=== PATIENT | female | born 1965 | race Caucasian/White ===

== ENCOUNTER 2020-06-04 14:15 | Inpatient (IN) ==
--- NOTE | 2020-06-04 15:16 | Emergency Department Note ---
History of Present Illness General Chief complaint: Illness Stated complaint: COVID +,FEELING NUMB,WEAK,DIARRHEA Time Seen by Provider: 06/04/20 15:00 History of Present Illness This is a 54-year-old female that presents to the emergency department via private vehicle with complaints "Covid positive, feeling numb, weak, diarrhea". The patient notes that last weekend she developed bilateral eye pain and feeling tired. She notes that her coworkers tested positive for COVID-19 therefore she was tested this past Monday and was called with results that were positive on Monday. She was tested at [facility]. She notes since that time starting today she began with numbness in the fingers and nose/lips. This is new for her and notes that she was not able to move earlier today secondary to this while at home. This prompted arrival here today. She notes associated fever, chills and diarrhea. She denies any chest pain, shortness of breath, nausea or vomiting. She notes a history of hypertension, partial hysterectomy and is currently on Paxil. She is also on atenolol for heart palpitations. She denies any vision change or weakness at this current time. Home Medications Medication Instructions Recorded Confirmed Type atenolol 100 mg PO DAILY 05/20/18 06/04/20 History paroxetine HCl 10 mg PO DAILY 05/20/18 06/04/20 History hydrochlorothiazide 25 mg PO DAILY 06/04/20 06/04/20 History sumatriptan succinate 100 mg PO UD PRN 06/04/20 06/04/20 History Allergies Allergy/AdvReac Type Severity Reaction Status Date / Time erythromycin base Allergy Mild Rash Verified 06/04/20 17:06 Past Med/Surg History Medical History Acid reflux disease Anxiety Palpitations Surgical History (Updated 06/04/20 @ 15:21 by Carmine Alas PA-C) History of partial hysterectomy Family History Other No pertinent family history in first degree relatives Social History Smoking Status: Former smoker Preferred Language: Algerian Feels Safe at Home: Yes Review of Systems A total of 10 systems reviewed and were otherwise negative Physical Exam Vital Signs Vital Signs - 24 hr 06/04/20 14:22 06/04/20 15:03 06/04/20 15:14 Temperature 37.3 C Temperature Source Temporal Artery Scan Pulse Rate 87 72 84 Pulse Rate from SpO2 Sensor 71 Pulse Rhythm Regular Respiratory Rate 16 27 H 18 Respiratory Effort / Characteristics Short of Breath Blood Pressure 117/77 123/78 Blood Pressure Mean 90 93 Blood Pressure Position Sitting Pulse Oximetry 99 99 96 Oxygen Delivery Method Room Air Room Air Sepsis Recent Fever Within 48 Hours No Sepsis New/Unexplained Change in Mental Status N/A Sepsis Action Taken by Nursing No Action Required 06/04/20 16:00 06/04/20 16:30 06/04/20 17:00 Temperature Temperature Source Pulse Rate 68 68 69 Pulse Rate from SpO2 Sensor 69 69 69 Pulse Rhythm Respiratory Rate 27 H 25 H 24 Respiratory Effort / Characteristics Blood Pressure 103/53 L 117/70 121/73 Blood Pressure Mean 69 85 89 Blood Pressure Position Pulse Oximetry 96 97 99 Oxygen Delivery Method Sepsis Recent Fever Within 48 Hours Sepsis New/Unexplained Change in Mental Status Sepsis Action Taken by Nursing 06/04/20 17:30 06/04/20 18:30 06/04/20 19:00 Temperature Temperature Source Pulse Rate 72 68 67 Pulse Rate from SpO2 Sensor 71 68 67 Pulse Rhythm Respiratory Rate 24 22 24 Respiratory Effort / Characteristics Blood Pressure 117/71 132/76 126/75 Blood Pressure Mean 86 94 92 Blood Pressure Position Pulse Oximetry 99 99 97 Oxygen Delivery Method Sepsis Recent Fever Within 48 Hours Sepsis New/Unexplained Change in Mental Status Sepsis Action Taken by Nursing 06/04/20 19:30 06/04/20 20:00 06/04/20 20:30 Temperature Temperature Source Pulse Rate 72 65 68 Pulse Rate from SpO2 Sensor 72 65 68 Pulse Rhythm Respiratory Rate 25 H 26 H 22 Respiratory Effort / Characteristics Blood Pressure 130/79 131/76 110/55 L Blood Pressure Mean 96 94 73 Blood Pressure Position Pulse Oximetry 98 97 97 Oxygen Delivery Method Sepsis Recent Fever Within 48 Hours Sepsis New/Unexplained Change in Mental Status Sepsis Action Taken by Nursing 06/04/20 21:00 Temperature Temperature Source Pulse Rate Pulse Rate from SpO2 Sensor 71 Pulse Rhythm Respiratory Rate Respiratory Effort / Characteristics Blood Pressure 128/81 Blood Pressure Mean 96 Blood Pressure Position Pulse Oximetry 97 Oxygen Delivery Method Sepsis Recent Fever Within 48 Hours Sepsis New/Unexplained Change in Mental Status Sepsis Action Taken by Nursing VITAL SIGNS - Vital signs and nursing notes were reviewed. Stable and afebrile. GENERAL -54-year-old female appearing her stated age who is in no acute distre ss. Communicates well with provider and answers questions appropriately. SKIN - Without rashes. No meningeal or petechial rash. HEAD - NC/AT. EYES - PERRL with EOMI bilaterally. Sclera anicteric. Palpebral conjunctiva pink and moist with no injection noted. EARS - No deformities of external structures noted on gross examination bilaterally. No pain elicited with palpation of the tragus bilaterally. External auditory canals without discharge or otorrhea. Tympanic membranes pearly luo without retraction or bulging. No fluid or purulent material visualized behind the TM. Handle of malleus, umbo, cone of light, pars tensa/flaccid all easily visualized. NOSE - Midline and without cyanosis. No epistaxis or purulent drainage noted. Septum midline without deviation or septal hematoma noted. MOUTH/OROPHARYNX - Without perioral cyanosis. Buccal mucosa pink and moist and without leukoplakia. Tongue midline with equal elevation of palate bilaterally. No tonsillar hypertrophy, erythema, or exudates noted. Good dentition noted. NECK - Neck with FROM. Supple to palpation. No lymphadenopathy noted. No nuchal rigidity. LUNGS - Chest wall symmetric without accessory muscle use, intercostals retr actions, or central cyanosis. Normal vesicular breath sounds CTA B/L. No wheezes, rales, or rhonchi appreciated. CARDIAC - RRR with S1/S2. No murmur, rubs, or gallops appreciated. ABDOMEN - Abdominal contour normal without pulsations or visible masses. BS normoactive all four quadrants. No tenderness, palpable masses, hepatosplenomegaly, or ascites noted. EXTREMITIES - No clubbing or peripheral cyanosis. No pretibial edema present. +5/5 strength noted in UE/LE bilaterally. NEUROLOGIC - Cranial nerves II through XII grossly intact. Sensory intact to light touch throughout. PSYCH - A&Ox3 and cooperates fully with examiner. Pt is very pleasant and interacts well with examiner. Course Administered Medications Discontinued Medications Sodium Chloride (Nss 1000ml) 1,000 mls @ 999 mls/hr IV .Q1H1M VEE Stop: 06/04/20 16:45 Last Infusion: 06/04/20 20:00 Dose: 0 mls/hr Documented by: [id number] Admin: 06/04/20 16:38 Dose: 999 mls/hr Documented by: [id number] Potassium Phosphate 21 mmol/ (Sodium Chloride) 507 mls @ 126.75 mls/hr IV NOW ONE Stop: 06/04/20 21:14 Last Infusion: 06/04/20 18:01 Dose: 0 mls/hr Documented by: [id number] Admin: 06/04/20 17:35 Dose: 126.8 mls/hr Documented by: [id number] Ioversol (Optiray 350 500ml) 117 ml IV ONCE ONE Stop: 06/04/20 18:07 Last Admin: 06/04/20 18:06 Dose: 117 ml Documented by: [id number] Potassium Chloride (Potassium Chloride Crtab 20 Meq Tabcr) 20 meq PO NOW STA Stop: 06/04/20 18:54 Last Admin: 06/04/20 21:23 Dose: 20 meq Documented by: [id number] Potassium Chloride (Potassium Chloride 20 Meq/15 Ml Udc) Confirm Administered Dose 20 meq .ROUTE .STK-MED ONE Stop: 06/04/20 21:04 Last Admin: 06/04/20 21:56 Dose: Not Given Documented by: [id number] Medical Decision Making Laboratory Data Result diagrams: 06/04/20 15:30 06/04/20 15:22 Lab Results 06/04/20 06/04/20 06/04/20 Range/Units 15:22 15:30 15:30 WBC 4.24 L (4.8-10.8) K/uL RBC 5.58 H (4.2-5.4) M/uL Hgb 17.5 H (12.0-16.0) g/dL Hct 50.1 H (37-47) % MCV 89.8 (80-100) fL MCH 31.4 (25-34) pg MCHC 34.9 (32-36) g/dL RDW Std Deviation 42.4 (36.4-46.3) fL RDW Coeff of Carlos 12.8 (11.5-14.5) % Plt Count 121 L (130-400) K/uL MPV 10.3 (7.4-10.4) fL Immature Gran % (Auto) 0.5 % Neut % (Auto) 74.5 % Lymph % (Auto) 17.0 % Mason % (Auto) 7.8 % Eos % (Auto) 0.0 % Baso % (Auto) 0.2 % Neut # (Auto) 3.16 (1.4-6.5) K/uL Lymph # (Auto) 0.72 L (1.2-3.4) K/uL Mason # (Auto) 0.33 (0.11-0.59) K/uL Eos # (Auto) 0.00 (0-0.5) K/uL Baso # (Auto) 0.01 (0-0.2) K/uL Immature Gran # (Auto) 0.02 (0.00-0.02) K/uL Microcytosis [employer] PT 10.0 (9.0-12.0) Seconds INR 1.0 (0.9-1.1) APTT 25.1 (21.0-31.0) Seconds PTT Ratio 1.0 Sodium 138 (136-145) mmol/L Potassium 3.0 L (3.5-5.1) mmol/L Chloride 100 (98-107) mmol/L Carbon Dioxide 31 (21-32) mmol/L Anion Gap 7.0 (3-11) BUN 14 (7-18) mg/dl Creatinine 0.86 (0.6-1.2) mg/dl Est Cr Clr Drug Dosing 70.0 ml/min Est GFR ( Amer) 88.8 Est GFR (Non-Af Amer) 76.6 BUN/Creatinine Ratio 16.4 (10-20) Glucose 119 H (70-99) mg/dl Calcium 9.0 (8.5-10.1) mg/dl Phosphorus 1.4 L* (2.5-4.9) mg/dl Magnesium 2.4 (1.8-2.4) mg/dl Total Bilirubin 0.6 (0.2-1) mg/dl AST 33 (15-37) U/L ALT 32 (12-78) U/L Alkaline Phosphatase 91 (45-117) U/L Troponin I < 0.015 (0-0.045) ng/ml Total Protein 8.8 H (6.4-8.2) gm/dl Albumin 4.2 (3.4-5.0) gm/dl Globulin 4.6 H (2.5-4.0) gm/dl Albumin/Globulin Ratio 0.9 (0.9-2) TSH 4.930 H (0.300-4.500) uIu/ml Free T4 1.17 (0.8-1.6) ng/dl Urine Color Urine Appearance (Clear) Urine pH (4.5-7.5) Ur Specific [place] (1.000-1.030) Urine Protein (Negative) Urine Glucose (UA) (Negative) Urine Ketones (Negative) Urine Blood (Negative) Urine Nitrite (Negative) Urine Bilirubin (Negative) Urine Urobilinogen (Negative) Ur Leukocyte Esterase (Negative) Urine WBC (Auto) (0-5) /hpf Urine RBC (Auto) (0-4) /hpf U Hyaline Cast (Auto) (0-5) /lpf U Epithel Cells (Auto) (0-5) /lpf Urine Bacteria (Auto) (Negative) Ur Renal Epithelial Cell (0-5) /lpf COVID-19 Eval Order SARS-CoV-2 (PCR) (Negative) Influenza Type A (PCR) (Neg) Influenza Type B (PCR) (Neg) RSV (RT-PCR) (Neg) 06/04/20 06/04/20 06/04/20 Range/Units 15:30 19:55 19:55 WBC (4.8-10.8) K/uL RBC (4.2-5.4) M/uL Hgb (12.0-16.0) g/dL Hct (37-47) % MCV (80-100) fL MCH (25-34) pg MCHC (32-36) g/dL RDW Std Deviation (36.4-46.3) fL RDW Coeff of Carlos (11.5-14.5) % Plt Count (130-400) K/uL MPV (7.4-10.4) fL Immature Gran % (Auto) % Neut % (Auto) % Lymph % (Auto) % Mason % (Auto) % Eos % (Auto) % Baso % (Auto) % Neut # (Auto) (1.4-6.5) K/uL Lymph # (Auto) (1.2-3.4) K/uL Mason # (Auto) (0.11-0.59) K/uL Eos # (Auto) (0-0.5) K/uL Baso # (Auto) (0-0.2) K/uL Immature Gran # (Auto) (0.00-0.02) K/uL Microcytosis PT (9.0-12.0) Seconds INR (0.9-1.1) APTT (21.0-31.0) Seconds PTT Ratio Sodium (136-145) mmol/L Potassium (3.5-5.1) mmol/L Chloride (98-107) mmol/L Carbon Dioxide (21-32) mmol/L Anion Gap (3-11) BUN (7-18) mg/dl Creatinine (0.6-1.2) mg/dl Est Cr Clr Drug Dosing ml/min Est GFR ( Amer) Est GFR (Non-Af Amer) BUN/Creatinine Ratio (10-20) Glucose (70-99) mg/dl Calcium (8.5-10.1) mg/dl Phosphorus (2.5-4.9) mg/dl Magnesium (1.8-2.4) mg/dl Total Bilirubin (0.2-1) mg/dl AST (15-37) U/L ALT (12-78) U/L Alkaline Phosphatase (45-117) U/L Troponin I (0-0.045) ng/ml Total Protein (6.4-8.2) gm/dl Albumin (3.4-5.0) gm/dl Globulin (2.5-4.0) gm/dl Albumin/Globulin Ratio (0.9-2) TSH (0.300-4.500) uIu/ml Free T4 (0.8-1.6) ng/dl Urine Color Dark Yellow Urine Appearance Cloudy A (Clear) Urine pH 7.5 (4.5-7.5) Ur Specific [place] 1.028 (1.000-1.030) Urine Protein 3+ H (Negative) Urine Glucose (UA) Negative (Negative) Urine Ketones 1+ H (Negative) Urine Blood Trace H (Negative) Urine Nitrite Negative (Negative) Urine Bilirubin Negative (Negative) Urine Urobilinogen Negative (Negative) Ur Leukocyte Esterase Trace H (Negative) Urine WBC (Auto) 5-10 H (0-5) /hpf Urine RBC (Auto) 5-10 H (0-4) /hpf U Hyaline Cast (Auto) >30 H (0-5) /lpf U Epithel Cells (Auto) >30 H (0-5) /lpf Urine Bacteria (Auto) Negative (Negative) Ur Renal Epithelial Cell 0-5 (0-5) /lpf COVID-19 Eval Order CovFluRsv at [facility] SARS-CoV-2 (PCR) POSITIVE A* (Negative) Influenza Type A (PCR) Negative (Neg) Influenza Type B (PCR) Negative (Neg) RSV (RT-PCR) Negative (Neg) Imaging Data Radiologist's Impression: Chest X-Ray 06/04/20 15:14 XR chest 1V portable CLINICAL HISTORY: numbness in extremities COMPARISON STUDY: 09/04/2013 FINDINGS: The cardiac and mediastinal contours are normal. There is no evidence of focal pulmonary consolidation. There is no evidence of failure. No pleural effusions are visualized.[An azygos fissure is again visualized. IMPRESSION: No active disease in the chest. ACT 112: Negative or not required by law. Electronically signed by: Marlo Lara M.D. 06/04/2020 4:14 PM Head CTA 06/04/20 15:14 CT ANGIOGRAM OF THE BRAIN COMBO; CT ANGIOGRAM OF THE NECK CLINICAL HISTORY: Extremity numbness. Covid. COMPARISON STUDY: No priors. TECHNIQUE: Unenhanced axial CT scan of the brain is performed. Subsequently, following the IV administration of 117 of Optiray 350, CT angiogram of the head and neck was performed from the aortic arch to the vertex. Images are reviewed in the axial, sagittal, and coronal planes. 3-D MIPS images are created and assessed. IV contrast was administered without complication. All measurements were calculated based on NASCET criteria. A dose lowering technique was utilized adhering to the principles of ALARA. CT DOSE: 1050.00 mGy.cm FINDINGS: Brain parenchyma: The brain parenchyma is normal in appearance. There is no hemorrhage, mass effect, or evidence of acute territorial ischemia by CT cr iteria. There is no evidence of enhancing mass lesion on the angiogram phase images. The ventricles, sulci, and cisterns are normal in configuration. Luo- white matter differentiation is preserved. No extra-axial fluid collection is seen. Thoracic aorta: Visualized portions of the thoracic aorta are normal in caliber. The aortic arch demonstrates standard 3-vessel anatomy. Right carotid arterial system: The right common carotid artery is widely patent, as are the right internal and external carotid arteries. The right internal carotid artery demonstrates a beaded appearance. Left carotid arterial system: The left common carotid artery is widely patent, as are the left internal and external carotid arteries. The left internal carotid artery demonstrates a beaded appearance. Vertebral arteries: The vertebral arteries are widely patent and codominant. Subclavian arteries: Widely patent bilaterally. Intracranial vasculature: The internal carotid arteries are patent at the skull base, as are the anterior and middle cerebral arteries bilaterally. The vertebrobasilar system and posterior cerebral arteries are widely patent. The vertebral arteries are codominant. There is no aneurysm, high-grade stenosis, or focal vessel cut off seen throughout the intracranial circulation. Jugular veins: Patent bilaterally. Dural sinuses: Patent. Lung apices: Partially visualized upper lobe lung parenchyma appears clear. An accessory azygous fissure is incidentally noted. Soft tissues: The visualized pharyngeal soft tissues are normal in appearance noting angiographic phase technique. The oropharyngeal airway appears widely patent. A large calcification is noted in the left lobe of the thyroid gland. Scattered subcentimeter low-attenuation nodules are seen bilaterally. The salivary glands are normal in appearance. No cervical lymphadenopathy is seen. Skeletal structures: The calvarium appears intact. The cervical spine is within normal limits. No lytic or blastic lesion is seen. Orbits: The bony orbits are intact. Orbital contents are normal as visualized. Sinuses and mastoids: There is mild mucosal thickening within the maxillary antra. The remaining paranasal sinuses are clear. The mastoid air cells are well pneumatized. IMPRESSION: 1. There is no hemorrhage, mass effect, or evidence of acute territorial ischemia by CT criteria. 2. Unremarkable CT angiogram of the brain. 3. The carotid arteries and vertebral arteries are patent in the neck. 4. The internal carotid arteries demonstrate a beaded appearance bilaterally. This is typical in appearance for fibromuscular dysplasia. ACT 112: Negative or not required by law. Electronically signed by: Lew Whitley M.D. 06/04/2020 6:30 PM Neck CTA 06/04/20 15:14 CT ANGIOGRAM OF THE BRAIN COMBO; CT ANGIOGRAM OF THE NECK CLINICAL HISTORY: Extremity numbness. Covid. COMPARISON STUDY: No priors. TECHNIQUE: Unenhanced axial CT scan of the brain is performed. Subsequently, following the IV administration of 117 of Optiray 350, CT angiogram of the head and neck was performed from the aortic arch to the vertex. Images are reviewed in the axial, sagittal, and coronal planes. 3-D MIPS images are created and assessed. IV contrast was administered without complication. All measurements were calculated based on NASCET criteria. A dose lowering technique was utilized adhering to the principles of ALARA. CT DOSE: 1050.00 mGy.cm FINDINGS: Brain parenchyma: The brain parenchyma is normal in appearance. There is no hemorrhage, mass effect, or evidence of acute territorial ischemia by CT criteria. There is no evidence of enhancing mass lesion on the angiogram phase images. The ventricles, sulci, and cisterns are normal in configuration. Luo- white matter differentiation is preserved. No extra-axial fluid collection is seen. Thoracic aorta: Visualized portions of the thoracic aorta are normal in caliber. The aortic arch demonstrates standard 3-vessel anatomy. Right carotid arterial system: The right common carotid artery is widely patent, as are the right internal and external carotid arteries. The right internal carotid artery demonstrates a beaded appearance. Left carotid arterial system: The left common carotid artery is widely patent, as are the left internal and external carotid arteries. The left internal carotid artery demonstrates a beaded appearance. Vertebral arteries: The vertebral arteries are widely patent and codominant. Subclavian arteries: Widely patent bilaterally. Intracranial vasculature: The internal carotid arteries are patent at the skull base, as are the anterior and middle cerebral arteries bilaterally. The vertebrobasilar system and posterior cerebral arteries are widely patent. The vertebral arteries are codominant. There is no aneurysm, high-grade stenosis, or focal vessel cut off seen throughout the intracranial circulation. Jugular veins: Patent bilaterally. Dural sinuses: Patent. Lung apices: Partially visualized upper lobe lung parenchyma appears clear. An accessory azygous fissure is incidentally noted. Soft tissues: The visualized pharyngeal soft tissues are normal in appearance noting angiographic phase technique. The oropharyngeal airway appears widely patent. A large calcification is noted in the left lobe of the thyroid gland. Scattered subcentimeter low-attenuation nodules are seen bilaterally. The salivary glands are normal in appearance. No cervical lymphadenopathy is seen. Skeletal structures: The calvarium appears intact. The cervical spine is within normal limits. No lytic or blastic lesion is seen. Orbits: The bony orbits are intact. Orbital contents are normal as visualized. Sinuses and mastoids: There is mild mucosal thickening within the maxillary antra. The remaining paranasal sinuses are clear. The mastoid air cells are well pneumatized. IMPRESSION: 1. There is no hemorrhage, mass effect, or evidence of acute territorial isch emia by CT criteria. 2. Unremarkable CT angiogram of the brain. 3. The carotid arteries and vertebral arteries are patent in the neck. 4. The internal carotid arteries demonstrate a beaded appearance bilaterally. This is typical in appearance for fibromuscular dysplasia. ACT 112: Negative or not required by law. Electronically signed by: Lew Whitley M.D. 06/04/2020 6:30 PM MDM Narrative Patient was seen and evaluated as above in room B08. Review was performed of nursing notes and vital signs. After obtaining a thorough history and physical examination the above work up was performed. Patient presents to us today in the setting of recent positive COVID-19 test now with what she describes as numbness in the hands, feet as well as face. She notes that earlier today she was unable to move the feet and hands. On arrival there is no neurovascular deficit. Vital signs are stable. Patient appears nontoxic. Options of care were discussed with the patient. IV access was established. Labs were drawn. There is mild leukopenia at 4.24 with mild elevation of the patient's hemoglobin at 17.5. Hypokalemia noted at 3.0. Hypophosphatemia at 1.4. Troponin within normal limits. TSH reveals slight elevation of 4.9. Urinalysis reveals what is likely a contaminated sample. Covid testing was repeated here as the patient will likely require admission to the hospital as was informed by staff here that obtaining results from right aid is not possible at this time. This was performed and was positive for COVID-19. In addition, patient was repleted with IV potassium phosphate as well as p.o. potassium. She was also hydrated with a liter of normal saline. EKG was performed and does reveal changes compared to previous but she denies any chest pain or shortness of breath and also has a negative troponin. I discussed options of care with the patient. The potassium phosphate does have to run at a quite slow rate. Patient is experiencing intermittent numbness still in the hands. CTA was obtained of the head and neck. This was essentially negative for any emergent process however I will note that the internal carotid arteries demonstrated beaded appearance bilaterally per radiology noted be typical in appearance for fibromuscular dysplasia. I did discuss this with the patient. This is not felt to be pertinent to today's visit but do recommend outpatient follow-up with the PCP. Through shared decision making with the patient at this time we will discussed the case with the hospitalist for further evaluation and management inpatient setting and to trend her laboratory studies. Patient happy with plan of care. I did offer to discuss today's presentation and findings as well as recommendations with family and she respectfully declined. Case was discussed with the hospitalist. Please refer to further documentation regarding her stay. While in the department, I personally reevaluated the patient several times and each time the patient was found to be resting comfortably. Case was discussed with the attending physician. EKG was reviewed by myself and found to be Normal Sinus Rhythm at a rate of 70 beats per minute and per my interpretation reveals what appears to be potential mild ST depression in leads II, 3, aVF without any definitive significant ST elevation. Lead V6 appears to have artifact. This was compared EKG of September 04, 2013 and changes are present. QTc on today's EKG is 423 with a QRS of 78. An order was placed for continuous cardiac monitoring. The monitor shows a rate of 72 with sinus rhythm. GCS: 15 In the evaluation and treatment of this patient the following differential diagnoses were entertained: OH, PE, pericarditis, costochondritis, dissection, pneumonia, electrolyte disturbance, CVA, TIA, among others. Impression & Plan Hypophosphatemia, Hypokalemia, COVID-19, Extremity numbness Discharge Plan Visit Data Chief Complaint: Illness Stated Complaint: COVID +,FEELING NUMB,WEAK,DIARRHEA ED Provider: Olivia [facility] ED Midlevel Provider: Carmine Alas Discharge Problem: Hypophosphatemia, Hypokalemia, COVID-19, Extremity numbness Patient Disposition: Admitted As Inpatient Condition: Good Discharge Instructions Interventions: ED Discharge Assessment Last Done: 06/04/20 23:37
[2020-06-04] MEDS ORDERED: SODIUM CHLORIDE 0.9% 1000ML 1,000 ML IV SCH (15:45)
[2020-06-04 16:04] LABS: Basophils # (auto) 0.01 K/uL (0-0.2); Basophils % (auto) 0.2 %; Hematocrit (blood only) 50.1 % (37-47); Hemoglobin 17.5 g/dL (12.0-16.0); Immature Granulocytes # (auto) 0.02 K/uL (0.00-0.02); Immature Granulocytes % (auto) 0.5 %; Lymphocytes # (auto) 0.72 K/uL (1.2-3.4); Mean Corpuscular Hemoglobin 31.4 pg (25-34); Mean Corpuscular Hgb Conc 34.9 g/dL (32-36); Mean Corpuscular Volume 89.8 fL (80-100); Mean Platelet Volume 10.3 fL (7.4-10.4); Monocytes # (auto) 0.33 K/uL (0.11-0.59); Monocytes % (auto) 7.8 %; Neutrophils # (auto) 3.16 K/uL (1.4-6.5); Neutrophils % (auto) 74.5 %; Platelet Count 121 K/uL (130-400); RDW Coefficient of Variation 12.8 % (11.5-14.5); RDW Standard Deviation 42.4 fL (36.4-46.3); Red Blood Count 5.58 M/uL (4.2-5.4); White Blood Count 4.24 K/uL (4.8-10.8)
[2020-06-04 16:16] LABS: Partial Thromboplastin Time 25.1 Seconds (21.0-31.0)
--- NOTE | 2020-06-04 16:16 | XRay Report ---
XR chest 1V portable CLINICAL HISTORY: numbness in extremities COMPARISON STUDY: 09/04/2013 FINDINGS: The cardiac and mediastinal contours are normal. There is no evidence of focal pulmonary co nsolidation. There is no evidence of failure. No pleural effusions are visualized.[An azygos fissure is again visualized. IMPRESSION: No active disease in the chest. ACT 112: Negative or not required by law. Electronically signed by: Marlo Lara M.D. 06/04/2020 4:14 PM
[2020-06-04 16:21] LABS: Alanine Aminotransferase 32 U/L (12-78); Albumin Level 4.2 gm/dl (3.4-5.0); Aspartate Aminotransferase 33 U/L (15-37); BUN Creatinine Ratio 16.4 (10-20); Blood Urea Nitrogen 14 mg/dl (7-18); Carbon Dioxide 31 mmol/L (21-32); Chloride 100 mmol/L (98-107); Est GFR (African American) 88.8; Est GFR (Non-African American) 76.6; Glucose 119 mg/dl (70-99); Magnesium 2.4 mg/dl (1.8-2.4); Sodium 138 mmol/L (136-145)
[2020-06-04 16:25] LABS: Appearance Urine Cloudy (Clear); Bacteria Urine Automated Negative (Negative); Bilirubin Urine Negative (Negative); Blood Urine Trace (Negative); Color Urine Dark Yellow; Epithelial Cell Urine Auto >30 /lpf (0-5); Glucose Urine UA Negative (Negative); Ketones Urine 1+ (Negative); Leukocyte Esterase Urine Trace (Negative); Nitrite Urine Negative (Negative); Specific Gravity Urine 1.028 (1.000-1.030); Urobilinogen Urine Negative (Negative); pH Urine 7.5 (4.5-7.5)
[2020-06-04 16:33] LABS: Cast Urine Automated >30 /lpf (0-5); Protein Urine 3+ (Negative)
[2020-06-04 16:34] LABS: Albumin Globulin Ratio 0.9 (0.9-2); Alkaline Phosphatase 91 U/L (45-117); Bilirubin,Total 0.6 mg/dl (0.2-1); Globulin 4.6 gm/dl (2.5-4.0); Phosphorus 1.4 mg/dl (2.5-4.9); Total Protein 8.8 gm/dl (6.4-8.2); Troponin I < 0.015 ng/ml (0-0.045)
[2020-06-04 16:52] LABS: Renal Epithelial Cells Urine 0-5 /lpf (0-5)
[2020-06-04 16:58] LABS: T4 Free Thyroxine 1.17 ng/dl (0.8-1.6)
[2020-06-04] MEDS ORDERED: POTASSIUM PHOSPHATE 21 MMOL in SODIUM CHLORIDE 0.9% 500 ML IV ONE (17:15)
[2020-06-04] MEDS ORDERED: OPTIRAY 350 500ml IV ONE (18:06)
--- NOTE | 2020-06-04 18:31 | CT Scan Report ---
CT ANGIOGRAM OF THE BRAIN COMBO; CT ANGIOGRAM OF THE NECK CLINICAL HISTORY: Extremity numbness. Covid. COMPARISON STUDY: No priors. TECHNIQUE: Unenhanced axial CT scan of the brain is performed. Subsequently, following the IV adminis tration of 117 of Optiray 350, CT angiogram of the head and neck was performed from the aortic arch t o the vertex. Images are reviewed in the axial, sagittal, and coronal planes. 3-D MIPS images are cre ated and assessed. IV contrast was administered without complication. All measurements were calculate d based on NASCET criteria. A dose lowering technique was utilized adhering to the principles of ALA RA. CT DOSE: 1050.00 mGy.cm FINDINGS: Brain parenchyma: The brain parenchyma is normal in appearance. There is no hemorrhage, mass effect, or evidence of acute territorial ischemia by CT criteria. There is no evidence of enhancing mass lesi on on the angiogram phase images. The ventricles, sulci, and cisterns are normal in configuration. Gr ay-white matter differentiation is preserved. No extra-axial fluid collection is seen. Thoracic aorta: Visualized portions of the thoracic aorta are normal in caliber. The aortic arch demo nstrates standard 3-vessel anatomy. Right carotid arterial system: The right common carotid artery is widely patent, as are the right int ernal and external carotid arteries. The right internal carotid artery demonstrates a beaded appearan ce. Left carotid arterial system: The left common carotid artery is widely patent, as are the left international exchange coordinator al and external carotid arteries. The left internal carotid artery demonstrates a beaded appearance. Vertebral arteries: The vertebral arteries are widely patent and codominant. Subclavian arteries: Widely patent bilaterally. Intracranial vasculature: The internal carotid arteries are patent at the skull base, as are the ante rior and middle cerebral arteries bilaterally. The vertebrobasilar system and posterior cerebral maria esther tanja are widely patent. The vertebral arteries are codominant. There is no aneurysm, high-grade steno sis, or focal vessel cut off seen throughout the intracranial circulation. Jugular veins: Patent bilaterally. Dural sinuses: Patent. Lung apices: Partially visualized upper lobe lung parenchyma appears clear. An accessory azygous fiss ure is incidentally noted. Soft tissues: The visualized pharyngeal soft tissues are normal in appearance noting angiographic pha se technique. The oropharyngeal airway appears widely patent. A large calcification is noted in the l eft lobe of the thyroid gland. Scattered subcentimeter low-attenuation nodules are seen bilaterally. The salivary glands are normal in appearance. No cervical lymphadenopathy is seen. Skeletal structures: The calvarium appears intact. The cervical spine is within normal limits. No lyt ic or blastic lesion is seen. Orbits: The bony orbits are intact. Orbital contents are normal as visualized. Sinuses and mastoids: There is mild mucosal thickening within the maxillary antra. The remaining para nasal sinuses are clear. The mastoid air cells are well pneumatized. IMPRESSION: 1. There is no hemorrhage, mass effect, or evidence of acute territorial ischemia by CT criteria. 2. Unremarkable CT angiogram of the brain. 3. The carotid arteries and vertebral arteries are patent in the neck. 4. The internal carotid arteries demonstrate a beaded appearance bilaterally. This is typical in appe arance for fibromuscular dysplasia. ACT 112: Negative or not required by law. Electronically signed by: Lew Whitley M.D. 06/04/2020 6:30 PM
[2020-06-04] MEDS ORDERED: POTASSIUM CHLORIDE CRTAB 20 MEQ TABCR PO STA (18:53)
[2020-06-04] MEDS ORDERED: POTASSIUM CHLORIDE 20 MEQ/15 ML UDC ONE (21:03)
--- NOTE | 2020-06-04 21:15 | History & Physical Report ---
Date of Service June 04, 2020 Assessment & Plan (1) COVID-19: Patient afebrile, no respiratory distress, adequate oxygenation on room air -Continue to monitor -Maintain isolation precautions Present on Admission?: Yes (2) Hypophosphatemia: PO4=1.6. Possibly contributing to patient's muscle spasms. -KPhos supplementation 21 mmol -Repeat labs in AM Present on Admission?: Yes (3) Hypokalemia: K=3. -Supplementation -Repeat labs in AM Present on Admission?: Yes (4) Anxiety: Patient with history of anxiety - ?anxiety attack prior to arrival leading to symptoms of muscle spasm/perioral numbness and parasthesias -Continue Paroxetine Present on Admission?: Yes (5) Abnormal EKG: Patient denies chest pain, palpitations. No prior cardiac disease or risk factors for cardiac disease -Continue to monitor -Repeat troponin in AM F/E/N - LR at 125mL/hr x 1 liter, KPhos repletion ongoing, repeat labs in AM, Regualr diet as tolerated Ppx - Lovenox 40 BID Code - Full Dispo - Admit to medical Present on Admission?: Yes History of Present Illness Chief Complaint: spasms Primary Care Provider: DO Fanta Brock Connie is a 54yo C female with recently diagnosed Covid-19 infection presenting with muscle spasm and electrolyte abnormalities. Patient states that her symptoms began 5-6 days ago with body aches and fatigue as well as pain b ehind her eyes and diarrhea. She had several colleagues at work that tested positive for Covid-19. She tested positive on 06/01/20. Patient states that she has been very tired and sleeping most of the day. She has not eaten much. Today prior to arrival she was in her bathroom when she developed severe muscle spasms of her hands and feet. She was unable to move them. She also developed numbness and tingling of her hands and feet as well as around her mouth. She states she was unable to get up for approximately 30 minutes. She feels fairly well currently with no additional complaints. ER Course: KCL 20mEq, KPhos 21 mmol, NSS x 1L Allergies Allergy/AdvReac Type Severity Reaction Status Date / Time erythromycin base Allergy Mild Rash Verified 06/04/20 17:06 Home Medications Medication Instructions Recorded Confirmed Type atenolol 100 mg PO DAILY 05/20/18 06/04/20 History paroxetine HCl 10 mg PO DAILY 05/20/18 06/04/20 History hydrochlorothiazide 25 mg PO DAILY 06/04/20 06/04/20 History sumatriptan succinate 100 mg PO UD PRN 06/04/20 06/04/20 History Past Med/Surg History Medical History Acid reflux disease Anxiety Palpitations Surgical History (Updated 06/04/20 @ 15:21 by Carmine Alas PA-C) History of partial hysterectomy Family History Other No pertinent family history in first degree relatives Social History Smoking Status: Former smoker Second Hand Exposure: No; Do You Dip or Chew Tobacco: No; Tobacco Cessation Education Requested by Patient: No Hx Alcohol Use: No Hx Substance Use: No Preferred Language: Finnish School Nurse Required: No Beliefs That Will Affect Care: None Current Living Situation: Spouse Other Information That Helps Us Care for You: No Feels Safe at Home: Yes Assistive Devices: None Review of Systems Review of Systems: All systems reviewed & are unremarkable except as noted in HPI & below Physical Exam Physical Exam: General: patient resting comfortably, NAD, non-toxic in appearance, AA&O x 4 Skin: warm, dry, intact, no rashes or lesions HEENT: NC/AT, PERRL, EOMI, anicteric sclera, conjunctiva without injection, external ear normal to inspection and nontender, nares patent, moist mucus membranes, dentition intact, no oropharyngeal lesions, neck supple, trachea midline, no LAD, no thyromegaly, no JVD Heart: +S1/S2, regular, no m/r/g Lungs: equal air entry bilaterally, no rales/rhonchi/wheezes Abd: +BS, soft, NT/ND, no masses/organomegaly/ascites Ext: warm, 2+ pulses in UE/LE bilaterally, no clubbing/cyanosis or edema Neuro: nonfocal, patient AA&O x 4, speech intact, no facial droop, moving all extremities on command with equal strength 5/5 Results & Data Results & Data ([facility]) Vital Signs (Past 12 Hours) Vital Signs Temp Pulse Resp BP Pulse Ox 06/04/20 21:00 128/81 97 06/04/20 20:30 68 22 110/55 L 97 06/04/20 20:00 65 26 H 131/76 97 06/04/20 19:30 72 25 H 130/79 98 06/04/20 19:00 67 24 126/75 97 06/04/20 18:30 68 22 132/76 99 06/04/20 17:30 72 24 117/71 99 06/04/20 17:00 69 24 121/73 99 06/04/20 16:30 68 25 H 117/70 97 06/04/20 16:00 68 27 H 103/53 L 96 06/04/20 15:14 84 18 96 06/04/20 15:03 72 27 H 123/78 99 06/04/20 14:22 37.3 C 87 16 117/77 99 Laboratory Results Lab Results 06/04/20 06/04/20 06/04/20 Range/Units 15:22 15:30 15:30 WBC 4.24 L (4.8-10.8) K/uL RBC 5.58 H (4.2-5.4) M/uL Hgb 17.5 H (12.0-16.0) g/dL Hct 50.1 H (37-47) % MCV 89.8 (80-100) fL MCH 31.4 (25-34) pg MCHC 34.9 (32-36) g/dL RDW Std Deviation 42.4 (36.4-46.3) fL RDW Coeff of Carlos 12.8 (11.5-14.5) % Plt Count 121 L (130-400) K/uL MPV 10.3 (7.4-10.4) fL Immature Gran % (Auto) 0.5 % Neut % (Auto) 74.5 % Lymph % (Auto) 17.0 % Mcminn % (Auto) 7.8 % Eos % (Auto) 0.0 % Baso % (Auto) 0.2 % Neut # (Auto) 3.16 (1.4-6.5) K/uL Lymph # (Auto) 0.72 L (1.2-3.4) K/uL Mcminn # (Auto) 0.33 (0.11-0.59) K/uL Eos # (Auto) 0.00 (0-0.5) K/uL Baso # (Auto) 0.01 (0-0.2) K/uL Immature Gran # (Auto) 0.02 (0.00-0.02) K/uL Microcytosis ELECTRIC LINEMAN PT 10.0 (9.0-12.0) Seconds INR 1.0 (0.9-1.1) APTT 25.1 (21.0-31.0) Seconds PTT Ratio 1.0 Sodium 138 (136-145) mmol/L Potassium 3.0 L (3.5-5.1) mmol/L Chloride 100 (98-107) mmol/L Carbon Dioxide 31 (21-32) mmol/L Anion Gap 7.0 (3-11) BUN 14 (7-18) mg/dl Creatinine 0.86 (0.6-1.2) mg/dl Est Cr Clr Drug Dosing 70.0 ml/min Est GFR ( Amer) 88.8 Est GFR (Non-Af Amer) 76.6 BUN/Creatinine Ratio 16.4 (10-20) Glucose 119 H (70-99) mg/dl Calcium 9.0 (8.5-10.1) mg/dl Phosphorus 1.4 L* (2.5-4.9) mg/dl Magnesium 2.4 (1.8-2.4) mg/dl Total Bilirubin 0.6 (0.2-1) mg/dl AST 33 (15-37) U/L ALT 32 (12-78) U/L Alkaline Phosphatase 91 (45-117) U/L Troponin I < 0.015 (0-0.045) ng/ml Total Protein 8.8 H (6.4-8.2) gm/dl Albumin 4.2 (3.4-5.0) gm/dl Globulin 4.6 H (2.5-4.0) gm/dl Albumin/Globulin Ratio 0.9 (0.9-2) TSH 4.930 H (0.300-4.500) uIu/ml Free T4 1.17 (0.8-1.6) ng/dl Urine Color Urine Appearance (Clear) Urine pH (4.5-7.5) Ur Specific [place] (1.000-1.030) Urine Protein (Negative) Urine Glucose (UA) (Negative) Urine Ketones (Negative) Urine Blood (Negative) Urine Nitrite (Negative) Urine Bilirubin (Negative) Urine Urobilinogen (Negative) Ur Leukocyte Esterase (Negative) Urine WBC (Auto) (0-5) /hpf Urine RBC (Auto) (0-4) /hpf U Hyaline Cast (Auto) (0-5) /lpf U Epithel Cells (Auto) (0-5) /lpf Urine Bacteria (Auto) (Negative) Ur Renal Epithelial Cell (0-5) /lpf COVID-19 Eval Order SARS-CoV-2 (PCR) (Negative) Influenza Type A (PCR) (Neg) Influenza Type B (PCR) (Neg) RSV (RT-PCR) (Neg) 06/04/20 06/04/20 06/04/20 Range/Units 15:30 19:55 19:55 WBC (4.8-10.8) K/uL RBC (4.2-5.4) M/uL Hgb (12.0-16.0) g/dL Hct (37-47) % MCV (80-100) fL MCH (25-34) pg MCHC (32-36) g/dL RDW Std Deviation (36.4-46.3) fL RDW Coeff of Carlos (11.5-14.5) % Plt Count (130-400) K/uL MPV (7.4-10.4) fL Immature Gran % (Auto) % Neut % (Auto) % Lymph % (Auto) % Mcminn % (Auto) % Eos % (Auto) % Baso % (Auto) % Neut # (Auto) (1.4-6.5) K/uL Lymph # (Auto) (1.2-3.4) K/uL Mcminn # (Auto) (0.11-0.59) K/uL Eos # (Auto) (0-0.5) K/uL Baso # (Auto) (0-0.2) K/uL Immature Gran # (Auto) (0.00-0.02) K/uL Microcytosis PT (9.0-12.0) Seconds INR (0.9-1.1) APTT (21.0-31.0) Seconds PTT Ratio Sodium (136-145) mmol/L Potassium (3.5-5.1) mmol/L Chloride (98-107) mmol/L Carbon Dioxide (21-32) mmol/L Anion Gap (3-11) BUN (7-18) mg/dl Creatinine (0.6-1.2) mg/dl Est Cr Clr Drug Dosing ml/min Est GFR ( Amer) Est GFR (Non-Af Amer) BUN/Creatinine Ratio (10-20) Glucose (70-99) mg/dl Calcium (8.5-10.1) mg/dl Phosphorus (2.5-4.9) mg/dl Magnesium (1.8-2.4) mg/dl Total Bilirubin (0.2-1) mg/dl AST (15-37) U/L ALT (12-78) U/L Alkaline Phosphatase (45-117) U/L Troponin I (0-0.045) ng/ml Total Protein (6.4-8.2) gm/dl Albumin (3.4-5.0) gm/dl Globulin (2.5-4.0) gm/dl Albumin/Globulin Ratio (0.9-2) TSH (0.300-4.500) uIu/ml Free T4 (0.8-1.6) ng/dl Urine Color Dark Yellow Urine Appearance Cloudy A (Clear) Urine pH 7.5 (4.5-7.5) Ur Specific [place] 1.028 (1.000-1.030) Urine Protein 3+ H (Negative) Urine Glucose (UA) Negative (Negative) Urine Ketones 1+ H (Negative) Urine Blood Trace H (Negative) Urine Nitrite Negative (Negative) Urine Bilirubin Negative (Negative) Urine Urobilinogen Negative (Negative) Ur Leukocyte Esterase Trace H (Negative) Urine WBC (Auto) 5-10 H (0-5) /hpf Urine RBC (Auto) 5-10 H (0-4) /hpf U Hyaline Cast (Auto) >30 H (0-5) /lpf U Epithel Cells (Auto) >30 H (0-5) /lpf Urine Bacteria (Auto) Negative (Negative) Ur Renal Epithelial Cell 0-5 (0-5) /lpf COVID-19 Eval Order CovFluRsv at [facility] SARS-CoV-2 (PCR) POSITIVE A* (Negative) Influenza Type A (PCR) Negative (Neg) Influenza Type B (PCR) Negative (Neg) RSV (RT-PCR) Negative (Neg) Diagnostic Findings CT ANGIOGRAM OF THE BRAIN COMBO; CT ANGIOGRAM OF THE NECK CLINICAL HISTORY: Extremity numbness. Covid. COMPARISON STUDY: No priors. TECHNIQUE: Unenhanced axial CT scan of the brain is performed. Subsequently, following the IV administration of 117 of Optiray 350, CT angiogram of the head and neck was performed from the aortic arch to the vertex. Images are reviewed in the axial, sagittal, and coronal planes. 3-D MIPS images are created and assessed. IV contrast was administered without complication. All measurements were calculated based on NASCET criteria. A dose lowering technique was utilized adhering to the principles of ALARA. CT DOSE: 1050.00 mGy.cm FINDINGS: Brain parenchyma: The brain parenchyma is normal in appearance. There is no hemorrhage, mass effect, or evidence of acute territorial ischemia by CT criteria. There is no evidence of enhancing mass lesion on the angiogram phase images. The ventricles, sulci, and cisterns are normal in configuration. Luo- white matter differentiation is preserved. No extra-axial fluid collection is seen. Thoracic aorta: Visualized portions of the thoracic aorta are normal in caliber. The aortic arch demonstrates standard 3-vessel anatomy. Right carotid arterial system: The right common carotid artery is widely patent, as are the right internal and external carotid arteries. The right internal carotid artery demonstrates a beaded appearance. Left carotid arterial system: The left common carotid artery is widely patent, as are the left internal and external carotid arteries. The left internal carotid artery demonstrates a beaded appearance. Vertebral arteries: The vertebral arteries are widely patent and codominant. Subclavian arteries: Widely patent bilaterally. Intracranial vasculature: The internal carotid arteries are patent at the skull base, as are the anterior and middle cerebral arteries bilaterally. The vertebrobasilar system and posterior cerebral arteries are widely patent. The vertebral arteries are codominant. There is no aneurysm, high-grade stenosis, or focal vessel cut off seen throughout the intracranial circulation. Jugular veins: Patent bilaterally. Dural sinuses: Patent. Lung apices: Partially visualized upper lobe lung parenchyma appears clear. An accessory azygous fissure is incidentally noted. Soft tissues: The visualized pharyngeal soft tissues are normal in appearance noting angiographic phase technique. The oropharyngeal airway appears widely patent. A large calcification is noted in the left lobe of the thyroid gland. Scattered subcentimeter low-attenuation nodules are seen bilaterally. The salivary glands are normal in appearance. No cervical lymphadenopathy is seen. Skeletal structures: The calvarium appears intact. The cervical spine is within normal limits. No lytic or blastic lesion is seen. Orbits: The bony orbits are intact. Orbital contents are normal as visualized. Sinuses and mastoids: There is mild mucosal thickening within the maxillary antra. The remaining paranasal sinuses are clear. The mastoid air cells are well pneumatized. IMPRESSION: 1. There is no hemorrhage, mass effect, or evidence of acute territorial ischemia by CT criteria. 2. Unremarkable CT angiogram of the brain. 3. The carotid arteries and vertebral arteries are patent in the neck. 4. The internal carotid arteries demonstrate a beaded appearance bilaterally. This is typical in appearance for fibromuscular dysplasia. ACT 112: Negative or not required by law. Electronically signed by: Lew Whitley M.D. 06/04/2020 6:30 PM Dictated: 06/04/201820Transcribed: 06/04/201820 CT ANGIOGRAM OF THE BRAIN COMBO; CT ANGIOGRAM OF THE NECK CLINICAL HISTORY: Extremity numbness. Covid. COMPARISON STUDY: No priors. TECHNIQUE: Unenhanced axial CT scan of the brain is performed. Subsequently, following the IV administration of 117 of Optiray 350, CT angiogram of the head and neck was performed from the aortic arch to the vertex. Images are reviewed in the axial, sagittal, and coronal planes. 3-D MIPS images are created and assessed. IV contrast was administered without complication. All measurements were calculated based on NASCET criteria. A dose lowering technique was utilized adhering to the principles of ALARA. CT DOSE: 1050.00 mGy.cm FINDINGS: Brain parenchyma: The brain parenchyma is normal in appearance. There is no hemorrhage, mass effect, or evidence of acute territorial ischemia by CT criteria. There is no evidence of enhancing mass lesion on the angiogram phase images. The ventricles, sulci, and cisterns are normal in configuration. Luo- white matter differentiation is preserved. No extra-axial fluid collection is seen. Thoracic aorta: Visualized portions of the thoracic aorta are normal in caliber. The aortic arch demonstrates standard 3-vessel anatomy. Right carotid arterial system: The right common carotid artery is widely patent, as are the right internal and external carotid arteries. The right internal carotid artery demonstrates a beaded appearance. Left carotid arterial system: The left common carotid artery is widely patent, as are the left internal and external carotid arteries. The left internal carotid artery demonstrates a beaded appearance. Vertebral arteries: The vertebral arteries are widely patent and codominant. Subclavian arteries: Widely patent bilaterally. Intracranial vasculature: The internal carotid arteries are patent at the skull base, as are the anterior and middle cerebral arteries bilaterally. The vertebrobasilar system and posterior cerebral arteries are widely patent. The vertebral arteries are codominant. There is no aneurysm, high-grade stenosis, or focal vessel cut off seen throughout the intracranial circulation. Jugular veins: Patent bilaterally. Dural sinuses: Patent. Lung apices: Partially visualized upper lobe lung parenchyma appears clear. An accessory azygous fissure is incidentally noted. Soft tissues: The visualized pharyngeal soft tissues are normal in appearance noting angiographic phase technique. The oropharyngeal airway appears widely patent. A large calcification is noted in the left lobe of the thyroid gland. Scattered subcentimeter low-attenuation nodules are seen bilaterally. The salivary glands are normal in appearance. No cervical lymphadenopathy is seen. Skeletal structures: The calvarium appears intact. The cervical spine is within normal limits. No lytic or blastic lesion is seen. Orbits: The bony orbits are intact. Orbital contents are normal as visualized. Sinuses and mastoids: There is mild mucosal thickening within the maxillary antra. The remaining paranasal sinuses are clear. The mastoid air cells are well pneumatized. IMPRESSION: 1. There is no hemorrhage, mass effect, or evidence of acute territorial ischemia by CT criteria. 2. Unremarkable CT angiogram of the brain. 3. The carotid arteries and vertebral arteries are patent in the neck. 4. The internal carotid arteries demonstrate a beaded appearance bilaterally. This is typical in appearance for fibromuscular dysplasia. ACT 112: Negative or not required by law. Electronically signed by: Lew Whitley M.D. 06/04/2020 6:30 PM Dictated: 06/04/201820Transcribed: 06/04/201820 XR chest 1V portable CLINICAL HISTORY: numbness in extremities COMPARISON STUDY: 09/04/2013 FINDINGS: The cardiac and mediastinal contours are normal. There is no evidence of focal pulmonary consolidation. There is no evidence of failure. No pleural effusions are visualized.[An azygos fissure is again visualized. IMPRESSION: No active disease in the chest. ACT 112: Negative or not required by law. Electronically signed by: Marlo Lara M.D. 06/04/2020 4:14 PM Dictated: 06/04/20 1611 ECG Additional Comments: EKG with NSR at 70, normal axis, ST depression present in II, III, aVF as well as V4-V5 (V6 is poor quality) Code Status & VTE Plan VTE Prophylaxis Plan VTE Prophylaxis will be ordered: Yes PG Care Time/CCT Total # of Minutes Spent Total Time Spent with Patient: Total time spent is greater than 50% in coordination of care (as documented) at patient's floor/unit and/or counseling patient: Coding Level of Care Code 91046 Initial Inpt Care Lvl 3 Diagnoses COVID-19 U07.1 Hypophosphatemia E83.39 Hypokalemia E87.6 Anxiety F41.9 Abnormal EKG R94.31
[2020-06-04 21:59] LABS: Influenza A virus by PCR Negative (Neg); Influenza B virus by PCR Negative (Neg); RSV by PCR Negative (Neg)
[2020-06-04 22:41] LABS: SARS CoV2 RNA(COVID-19) InHosp POSITIVE (Negative)
[2020-06-05] MEDS ORDERED: LACTATED RINGER'S 1,000 ML IV SCH (00:16)
[2020-06-05 01:08] LABS: Creatine Kinase 118 U/L (26-192)
[2020-06-05] MEDS: ENOXAPARIN INJ 40 MG/0.4 ML SYR SQ SCH ×2 (01:40→13:35)
[2020-06-05 07:57] LABS: Hematocrit (blood only) 41.2 % (37-47); Hemoglobin 14.1 g/dL (12.0-16.0); Mean Corpuscular Hemoglobin 31.1 pg (25-34); Mean Corpuscular Hgb Conc 34.2 g/dL (32-36); Mean Corpuscular Volume 90.7 fL (80-100); Mean Platelet Volume 10.1 fL (7.4-10.4); Platelet Count 104 K/uL (130-400); RDW Coefficient of Variation 13.1 % (11.5-14.5); RDW Standard Deviation 43.7 fL (36.4-46.3); Red Blood Count 4.54 M/uL (4.2-5.4); White Blood Count 2.84 K/uL (4.8-10.8)
[2020-06-05 08:12] LABS: Calcium 8.4 mg/dl (8.5-10.1); Creatinine Clr Calc Pharmacy 98.7 ml/min; Est GFR (African American) 119.1; Est GFR (Non-African American) 102.8; Magnesium 2.1 mg/dl (1.8-2.4); Potassium 3.3 mmol/L (3.5-5.1)
[2020-06-05 08:17] LABS: Phosphorus 3.1 mg/dl (2.5-4.9); Troponin I 0.026 ng/ml (0-0.045)
[2020-06-05 08:24] LABS: RBC Morphology Unremarkable
[2020-06-05 08:26] LABS: ALC (manual) 1.82 K/uL (1.2-3.4); ANC (manual) 0.87 K/uL (1.4-6.5); Basophils # (manual) 0.03 K/uL (0-0.2); Basophils % (manual) 0.9 %; Eosinophils # (manual) 0.03 K/uL (0-0.5); Eosinophils % (manual) 0.9 %; Lymphocytes # (manual) 1.02 K/uL (1.2-3.4); Lymphocytes % (manual) 35.9 %; Monocytes % (manual) 3.5 %; Neutrophils # (manual) 0.87 K/uL (1.4-6.5); Neutrophils % (manual) 30.7 %; Reactive Lymphocytes % (manual) 28.1 %
[2020-06-05] MEDS: PARoxetine HCL 10 MG TAB PO SCH (08:29)
[2020-06-05] MEDS: ATENOLOL 50 MG TABLET PO SCH (08:29)
--- NOTE | 2020-06-05 08:34 | Hospitalist Progress Note ---
Date of Service June 05, 2020 Assessment & Plan (1) COVID-19: Patient afebrile, no respiratory distress, adequate oxygenation on room air -Covid gastroenteritis, no loss of taste or smell -Maintain isolation precautions (2) Hypophosphatemia: Hypophosphatemia has resolved does have some persistent hypokalemia phosphorus is now intact continue supplement phosphorus (3) Hypokalemia: Continue supplementation following lab (4) Anxiety: Patient with history of anxiety - ?anxiety attack prior to arrival leading to symptoms of muscle spasm/perioral numbness and parasthesias -Continue Paroxetine (5) Abnormal EKG: Patient denies chest pain, palpitations. No prior cardiac disease or risk factors for cardiac disease -Continue to monitor -Repeat troponin in AM Ppx - Lovenox 40 BID Code - Full Admission and Anticipated Discharge Date Admission Date: June 04, 2020 Subjective Patient still having diarrhea overall very weak and tired appetite is poor no shortness of breath nonproductive cough is present Review of Systems Review of Systems: Mild distress and fatigue no headache, blurry or double vision no speech or swallowing issues no chest pain, pressure or palpitations no shortness of breath, cough or wheezes Generalized diffuse abdominal pain, no nausea or vomiting, persistent diarrhea no dysuria, hematuria or frequency no focal joint pain or swelling no back pain, CVA tenderness or radicular pain no bruising, bleeding or rashes no focal signs of weakness or numbness or altered sensation no complaints of anxiety or depression.. Physical Exam Physical Exam: The patient appeared well nourished and normally developed. Vital signs as documented. Head exam is normocephalic atraumatic no scleral icterus Neck is without JVD, thyromegaly, or carotid bruits. Lungs are clear to auscultation, no focal loss of breath sounds Cardiac exam, Rhythm is regular.. No murmurs, rubs or gallops. Abdominal exam reveals normal bowel sounds, soft mildly diffusely tender no rebound no guarding Extremities are nonedematous and both pedal pulses are present Neurologic exam is alert and oriented, no focal loss of strength or sensation Skin is without bruises or rashes Psychologically is without concerns for anxiety or depression Results & Data Results & Data ([facility]) Vital Signs (Past 12 Hours) Vital Signs Temp Pulse Resp BP BP BP Pulse Ox 06/05/20 08:23 99.0 F 68 16 130/81 97 06/05/20 00:18 98.2 F 76 18 116/79 97 06/04/20 21:00 128/81 97 PG Care Time/CCT Total # of Minutes Spent Total Time Spent with Patient: Total time spent is greater than 50% in coordination of care (as documented) at patient's floor/unit and/or counseling patient: Coding Level of Care Code 95351 Subseq Hosp Care Lvl 3 Diagnoses COVID-19 U07.1 Hypophosphatemia E83.39 Hypokalemia E87.6 Anxiety F41.9 Abnormal EKG R94.31
[2020-06-05] MEDS ORDERED: hydroCHLOROthiazide 25 MG TAB PO SCH (09:00)
[2020-06-05] MEDS: POTASSIUM CHLORIDE CRTAB 20 MEQ TABCR PO SCH ×2 (09:39→20:15)
[2020-06-05] MEDS ORDERED: LOPERAMIDE HCL 2 MG CAP PO STA (11:43)
--- NOTE | 2020-06-05 12:58 | Electrocardiogram Report ---
Test Reason : Blood Pressure : / mmHG Vent. Rate : 070 BPM Atrial Rate : 070 BPM P-R Int : 114 ms QRS Dur : 078 ms QT Int : 392 ms P-R-T Axes : 058 074 -27 degrees QTc Int : 423 ms Normal sinus rhythm Abnormal ECG When compared with ECG of 04-SEP-2013 00:14, Premature ventricular complexes are no longer Present Premature atrial complexes are no longer Present ST now depressed in Inferior leads Non-specific change in ST segment in Lateral leads T wave inversion now evident in Lateral leads Confirmed by Herrera Aden ([id number]) on 06/05/2020 12:58:47 PM Referred By: REFERRED SELF Confirmed By:Donavon Aden
[2020-06-05] MEDS: ACETAMINOPHEN 325 MG TAB PO PRN ×2 (14:10→20:25)
[2020-06-05] MEDS: LACTATED RINGER'S 1,000 ML IV SCH (17:40)
[2020-06-06] MEDS: ENOXAPARIN INJ 40 MG/0.4 ML SYR SQ SCH ×2 (01:05→12:21)
[2020-06-06] MEDS: LACTATED RINGER'S 1,000 ML IV SCH ×2 (04:11→14:38)
[2020-06-06] MEDS: ACETAMINOPHEN 325 MG TAB PO PRN (08:23)
[2020-06-06] MEDS: PARoxetine HCL 10 MG TAB PO SCH (08:24)
[2020-06-06] MEDS: ATENOLOL 50 MG TABLET PO SCH (08:25)
[2020-06-06] MEDS: POTASSIUM CHLORIDE CRTAB 20 MEQ TABCR PO SCH (08:25)
[2020-06-06 09:28] LABS: Hematocrit (blood only) 40.5 % (37-47); Hemoglobin 14.2 g/dL (12.0-16.0); Mean Corpuscular Hemoglobin 31.6 pg (25-34); Mean Corpuscular Hgb Conc 35.1 g/dL (32-36); Mean Platelet Volume 10.4 fL (7.4-10.4); Platelet Count 113 K/uL (130-400); RDW Standard Deviation 42.6 fL (36.4-46.3); White Blood Count 2.63 K/uL (4.8-10.8)
[2020-06-06 10:01] LABS: Albumin Level 3.1 gm/dl (3.4-5.0); BUN Creatinine Ratio 13.5 (10-20); Creatinine Clr Calc Pharmacy 103.8 ml/min; Est GFR (African American) 121.1; Est GFR (Non-African American) 104.5; Magnesium 1.9 mg/dl (1.8-2.4); Potassium 3.5 mmol/L (3.5-5.1)
[2020-06-06 10:05] LABS: Albumin Globulin Ratio 0.9 (0.9-2); Bilirubin,Total 0.5 mg/dl (0.2-1); Globulin 3.4 gm/dl (2.5-4.0); Total Protein 6.5 gm/dl (6.4-8.2)
[2020-06-06] MEDS: LOPERAMIDE HCL 2 MG CAP PO PRN (11:13)
--- NOTE | 2020-06-06 16:53 | Hospitalist Progress Note ---
Date of Service June 06, 2020 Assessment & Plan (1) COVID-19: Patient afebrile, no respiratory distress, adequate oxygenation on room air is of some exam changes the right base follow cautiously -Covid gastroenteritis, no loss of taste or smell -Maintain isolation precautions (2) Hypophosphatemia: Hypophosphatemia has resolved rechecked 06/06/2020 does have some persistent hypokalemia phosphorus is now intact continue supplement phosphorus (3) Hypokalemia: Continue supplementation following lab (4) Anxiety: Patient with history of anxiety - ?anxiety attack prior to arrival leading to symptoms of muscle spasm/perioral numbness and parasthesias -Continue Paroxetine (5) Abnormal EKG: Patient denies chest pain, palpitations. No prior cardiac disease or risk factors for cardiac disease -Continue to monitor -Repeat troponin in AM Ppx - Lovenox 40 BID Code - Full Admission and Anticipated Discharge Date Admission Date: June 04, 2020 Subjective Patient still having diarrhea overall very weak and tired patient states she just does not feel well she feels very weak she is having cramps in her arms and legs. Her appetite is still poor she is unable to keep up with p.o. intake. She says not having any pulmonary symptoms at this time to be some scant amount of cyst but that said Review of Systems Review of Systems: Mild distress and significant fatigue no headache, blurry or double vision no speech or swallowing issues no chest pain, pressure or palpitations no shortness of breath, cough or wheezes Generalized diffuse abdominal pain, no nausea or vomiting, persistent diarrhea poor appetite no dysuria, hematuria or frequency no focal joint pain or swelling no back pain, CVA tenderness or radicular pain no bruising, bleeding or rashes no focal signs of weakness or numbness or altered sensation no complaints of anxiety or depression.. Physical Exam Physical Exam: The patient appeared well nourished and normally developed. Vital signs as documented. Head exam is normocephalic atraumatic no scleral icterus Neck is without JVD, thyromegaly, or carotid bruits. Lungs are clear to auscultation, with the exception of reproducible right basilar rales Cardiac exam, Rhythm is regular.. No murmurs, rubs or gallops. Abdominal exam reveals normal bowel sounds, soft continues to be mildly diffusely tender no rebound no guarding Extremities are nonedematous and both pedal pulses are present Neurologic exam is alert and oriented, no focal loss of strength or sensation Skin is without bruises or rashes Psychologically is without concerns for anxiety or depression Results & Data Results & Data ([facility]) Vital Signs (Past 12 Hours) Vital Signs Temp Pulse Resp BP Pulse Ox 06/06/20 16:36 99.9 F H 06/06/20 14:38 99.9 F H 59 L 20 97/60 L 98 06/06/20 11:11 98.4 F 06/06/20 08:12 100.2 F H 76 20 121/85 96 PG Care Time/CCT Total # of Minutes Spent Total Time Spent with Patient: Total time spent is greater than 50% in coordina tion of care (as documented) at patient's floor/unit and/or counseling patient: Coding Level of Care Code 77017 Subseq Hosp Care Lvl 2 Diagnoses COVID-19 U07.1 Hypophosphatemia E83.39 Hypokalemia E87.6 Anxiety F41.9 Abnormal EKG R94.31
[2020-06-07] MEDS: LACTATED RINGER'S 1,000 ML IV SCH ×3 (00:44→20:12)
[2020-06-07] MEDS: ENOXAPARIN INJ 40 MG/0.4 ML SYR SQ SCH ×2 (00:45→11:17)
[2020-06-07] MEDS: ACETAMINOPHEN 325 MG TAB PO PRN (04:41)
[2020-06-07] MEDS: ONDANSETRON INJ 2 MG/ML 2 ML VIAL IV PRN (04:42)
--- NOTE | 2020-06-07 07:23 | XRay Report ---
XR chest 1V portable CLINICAL HISTORY: eval for progression of covid COMPARISON STUDY: Chest radiograph June 04, 2020. FINDINGS: Lung volumes are normal. There is no pneumothorax or pleural effusion. Bilateral lower lung airspace opacities have progressed. Cardiac size is normal. There is no evidence for pulmonary edema . IMPRESSION: Progression of bilateral lower lung airspace opacities consistent with an infectious pro cess. ACT 112: Negative or not required by law. Electronically signed by: Roberto Avila M.D. 06/07/2020 7:22 AM
[2020-06-07] MEDS: PARoxetine HCL 10 MG TAB PO SCH (08:25)
[2020-06-07] MEDS: ATENOLOL 50 MG TABLET PO SCH (08:25)
[2020-06-07] MEDS: dexAMETHasone 6 MG in SYRINGE 0 ML IV SCH (08:25)
[2020-06-07] MEDS ORDERED: REMDESIVIR 200 MG in SODIUM CHLORIDE 0.9% 210 ML IV ONE (09:00)
[2020-06-07] MEDS: SODIUM CHLORIDE 0.9% 10ML FLUSH IV SCH (11:14)
[2020-06-07] MEDS: LOPERAMIDE HCL 2 MG CAP PO PRN (11:24)
--- NOTE | 2020-06-07 16:06 | Hospitalist Progress Note ---
Date of Service June 07, 2020 Assessment & Plan (1) COVID-19: Covid pneumonia, hypoxia progressive chest x-ray changes dexamethasone remdesivir started on 06/07/2020 Encourage incentive spirometry and prone sleeping -Covid gastroenteritis, no loss of taste or smell -Maintain isolation precautions (2) Hypophosphatemia: Hypophosphatemia has resolved rechecked 06/06/2020 does have some persistent hypokalemia phosphorus is now intact continue supple ment phosphorus (3) Hypokalemia: Continue supplementation following lab (4) Anxiety: Patient with history of anxiety - ?anxiety attack prior to arrival leading to symptoms of muscle spasm/perioral numbness and parasthesias -Continue Paroxetine (5) Abnormal EKG: Patient denies chest pain, palpitations. No prior cardiac disease or risk factors for cardiac disease -Continue to monitor -Repeat troponin in AM Ppx - Lovenox 40 BID Code - Full Admission and Anticipated Discharge Date Admission Date: June 04, 2020 Subjective Patient was having increasing oxygen requirement still with persistent diarrhea has nonproductive coughing. Given the increased oxygen requirements and abnormal chest examination x-ray does support slight progression of basilar infiltrates. Given her oxygen was below 94% we will start her on remdesivir therapy and change her dexamethasone to IV format. Patient was informed of these changes she is profoundly weak and fatigued Review of Systems Review of Systems: Mild distress and significant fatigue no headache, blurry or double vision no speech or swallowing issues no chest pain, pressure or palpitations Mild shortness of breath nonproductive coughing Generalized diffuse abdominal pain, no nausea or vomiting, persistent diarrhea poor appetite no dysuria, hematuria or frequency no focal joint pain or swelling no back pain, CVA tenderness or radicular pain no bruising, bleeding or rashes no focal signs of weakness or numbness or altered sensation no complaints of anxiety or depression.. Physical Exam Physical Exam: The patient appeared well nourished and normally developed. Vital signs as documented. Head exam is normocephalic atraumatic no scleral icterus Neck is without JVD, thyromegaly, or carotid bruits. Lungs are basilar rales with now progressed from right basilar rales 1 day prior x-ray is abnormal Cardiac exam, Rhythm is regular.. No murmurs, rubs or gallops. Abdominal exam reveals normal bowel sounds, soft continues to be mildly diffusely tender no rebound no guarding Extremities are nonedematous and both pedal pulses are present Neurologic exam is alert and oriented, no focal loss of strength or sensation Skin is without bruises or rashes Psychologically is without concerns for anxiety or depression Results & Data [facility] & [facility] ([facility]) Vital Signs (Past 12 Hours) Vital Signs Temp Pulse Resp BP Pulse Ox 06/07/20 15:50 98.4 F 55 L 18 120/74 94 06/07/20 07:33 98.2 F 63 20 112/73 93 06/07/20 04:39 100.8 F H PG Care Time/CCT Total # of Minutes Spent Total Time Spent with Patient: Total time spent is greater than 50% in coordination of care (as documented) at patient's floor/unit and/or counseling patient: Coding Level of Care Code 42860 Subseq Hosp Care Lvl 3 Diagnoses COVID-19 U07.1 Hypophosphatemia E83.39 Hypokalemia E87.6 Anxiety F41.9 Abnormal EKG R94.31
[2020-06-08] MEDS: ENOXAPARIN INJ 40 MG/0.4 ML SYR SQ SCH ×2 (00:08→12:35)
[2020-06-08] MEDS: LACTATED RINGER'S 1,000 ML IV SCH (06:03)
[2020-06-08 07:06] LABS: Hematocrit (blood only) 40.7 % (37-47); Hemoglobin 13.6 g/dL (12.0-16.0); Mean Corpuscular Hemoglobin 30.4 pg (25-34); Mean Corpuscular Hgb Conc 33.4 g/dL (32-36); Mean Corpuscular Volume 90.8 fL (80-100); Mean Platelet Volume 10.2 fL (7.4-10.4); Platelet Count 127 K/uL (130-400); RDW Coefficient of Variation 12.9 % (11.5-14.5); Red Blood Count 4.48 M/uL (4.2-5.4)
[2020-06-08 07:39] LABS: Creatinine Clr Calc Pharmacy 109.5 ml/min; Est GFR (African American) 123.2; Est GFR (Non-African American) 106.3
[2020-06-08] MEDS: dexAMETHasone 6 MG in SYRINGE 0 ML IV SCH (08:13)
[2020-06-08] MEDS: PARoxetine HCL 10 MG TAB PO SCH (08:14)
[2020-06-08] MEDS: ATENOLOL 50 MG TABLET PO SCH (08:15)
[2020-06-08] MEDS: ONDANSETRON INJ 2 MG/ML 2 ML VIAL IV PRN (08:17)
[2020-06-08] MEDS ORDERED: REMDESIVIR 100 MG in SODIUM CHLORIDE 0.9% 230 ML IV SCH (12:00)
[2020-06-08] MEDS: SODIUM CHLORIDE 0.9% 10ML FLUSH IV SCH (12:35)
--- NOTE | 2020-06-08 15:23 | Discharge Summary ---
Date of Service June 08, 2020 Admission HPI Per Admitting Provider Fanta Rosales is a 54yo C female with recently diagnosed Covid-19 infection presenting with muscle spasm and electrolyte abnormalities. Patient states that her symptoms began 5-6 days ago with body aches and fatigue as well as pain behind her eyes and diarrhea. She had several colleagues at work that tested positive for Covid-19. She tested positive on 06/01/20. Patient states that she has been very tired and sleeping most of the day. She has not eaten much. Today prior to arrival she was in her bathroom when she developed severe muscle spasms of her hands and feet. She was unable to move them. She also developed numbness and tingling of her hands and feet as well as around her mouth. She states she was unable to get up for approximately 30 minutes. She feels fairly well currently with no additional complaints. ER Course: KCL 20mEq, KPhos 21 mmol, NSS x 1L Principal Diagnosis COVID 19 pneumonia, hypokalemia Discharge Exam Constitutional WD/WN, vitals as above Neck trachea midline, no thyromegaly Respiratory normal respiratory effort, lungs clear to auscultation Cardiovascular RRR, no murmur, no edema Gastrointestinal (Abdomen) normal bowel sounds, soft, nontender, no hepatosplenomegaly Musculoskeletal no cyanosis or clubbing, extremities motor strength 5/5 Skin no rashes, warm and dry Neurologic patellar DTR's 2+ bilat, sensation intact and PERRL, EOMI, accommodation nl, no face palsy, no dysarthria Psychiatric A+Ox3, euthymic affect Lymphatic no cervical or axillary lymphadenopathy Discharge Data Allergies Allergy/AdvReac Type Severity Reaction Status Date / Time erythromycin base Allergy Mild Rash Verified 06/04/20 17:06 Consultations 06/04/20 19:56 ED Decision to Admit Stat Ordered Studies 06/04/20 15:14 CT angio head wo/w Stat CT angio neck with con Stat Hospital Course (1) COVID-19: Covid pneumonia, progressive chest x-ray changes dexamethasone remdesivir started on 06/07/2020 saturations never dropped below 88% but she was below 94% on room air will change to dexamethasone 6mg PO daily for 6 more days take aspirin 81mg daily for 30 days Zinc 220mg daily for 10 days stay well hydrated, well nourished, well rested, stay off work until 06/15/20 instructed patient to monitor for any worsening shortness of breath, check pulse oximetry at home if she feels worse anticipate her to only continue to get better follow up with PCP (2) Hypophosphatemia: Hypophosphatemia has resolved rechecked 06/06/2020 likely due to poor PO intake prior to admission eating much better now (3) Hypokalemia: K low normal recommend taking 20mEq daily for the next week stopped HCTZ as BP stable on atenolol alone (4) Anxiety: Patient with history of anxiety - ?anxiety attack prior to arrival leading to symptoms of muscle spasm/perioral numbness and parasthesias -Continue Paroxetine (5) Abnormal EKG: Patient denies chest pain, palpitations. No prior cardiac disease or risk factors for cardiac disease -Repeat troponin negative Ppx - Lovenox 40 BID Code - Full Total Time Total Time Spent Total Time Spent (In Minutes): 33 minutes Total Time Includes: Examination of the Patient, Discharge Planning and Medication Reconciliation Discharge Plan Discharge Items Patient Disposition: Home - Self-Care Reason For Visit: COVID-19, HYPOPHOSPHATEMIA, HYPOKALEMIA Discharge Diagnosis: COVID 19 infection Hypokalemia and hypophosphatemia Condition on Discharge: Good Goals: stay well nourished, well hydrated complete short course of dexamethasone stay off work this week Activity: Resume your previous activity Non-emergency contact: Primary Care Provider Call non-emergency contact if: you have any medication questions Follow-up/Referrals: Tamia Roper DO [Primary Care Provider] - 06/16/20 10:00 am (one week. This will be a virtual appointment. If you have any questions or need to change this appointment, please call [phone].) Diet: Regular Addtl Attending Provider Instructions: Medications: - DEXAMETHASONE: 6mg daily for 6 more days to decrease inflammation - ZOFRAN: use as needed for any nausea - IMODIUM: use as needed for any loose stools - ZINC: continue to take for immune support - ASPIRIN: recommend you take 81mg daily, can improve outcomes with COVID, recommend taking for the next month and can then stop - POTASSIUM: recommend taking 20mEq daily for the next week - HYDROCHLOROTHIAZIDE: stop this medication, due to low potassium, your blood pressure has been stable on Atenolol alone COVID 19 infection saturations did drop below 94% but never below 88% which is true hypoxemia started on dexamethasone, will convert to oral option, complete 6 more days stay well nourished, well hydrated at home remain at home the next week, can return to work on 06/15/20 monitor yourself for any worsening shortness of breath, can check finger pulse ox, go to ED if oxygen is less than 88%, but as we discussed, you should only continue to feel better Pending Studies at Discharge: No Stand-Alone Forms: My [facility], Work/School Release (Inpt), Smoking Cessation Medications and DC Order Prescriptions: New loperamide 2 mg Capsule 2 mg PO Q4 PRN (Reason: loose stool) Qty: 14 RF: 0 dexamethasone 4 mg tablet 6 mg PO DAILY 6 Days Qty: 9 RF: 0 aspirin [Aspirin Low Dose] 81 mg tablet,delayed release (DR/EC) 81 mg PO DAILY Qty: 30 RF: 0 potassium chloride 20 mEq tablet extended release 20 meq PO DAILY Qty: 7 RF: 0 Continued atenolol 100 mg tablet 100 mg PO DAILY RF: 0 paroxetine HCl 10 mg tablet 10 mg PO DAILY RF: 0 sumatriptan succinate 100 mg tablet 100 mg PO UD PRN (Reason: Migraine Headache) RF: 0 Discontinued hydrochlorothiazide 25 mg tablet 25 mg PO DAILY RF: 0 Discharge Orders: Discharge Order (Routine); Ordered 06/08/20 Ordered By: Koko Greene Admission Data Admit Date/Time: 06/04/20 21:15 Attending Provider: Koko Greene Admit Provider: Kalyani Clifford Primary Care Provider: Tamia Roper Other Providers: Kalyani Clifford ; Koko Greene Other Interventions: Discharge Summary Assessment (RN) Last Done: 06/08/20 15:44 Coding Level of Care Code D/C Day Management >30 mins Diagnoses COVID-19 U07.1 Hypophosphatemia E83.39 Hypokalemia E87.6 Anxiety F41.9 Abnormal EKG R94.31
== END 2020-06-08 16:43 | disposition home or self-care (01) | DRG 177 ==
LOC: ED 14:15 → 2N 21:15 → SUATTDRO 21:15 → 2N 23:37